=== PATIENT | female | born 1945 | race Caucasian/White ===

== ENCOUNTER → 2023-12-10 11:05 | Outpatient (REF) | payer MEDICARE, SELFPAY | LOC: WDC 11:05 | PROVIDERS: ATTENDING PHYSICIAN Family Medicine | DX: Z12.31 Encounter for screening mammogram for malignant neoplasm of breast (principal) | CPT/HCPCS: 77063; 77067 ==

== ENCOUNTER → 2024-03-12 10:06 | Outpatient (REF) | payer MEDICARE, SELFPAY | LOC: RAD 10:06 | PROVIDERS: ATTENDING PHYSICIAN Family Medicine | DX: E78.2 Mixed hyperlipidemia (principal) | CPT/HCPCS: 75571 ==

== ENCOUNTER → 2024-12-13 11:34 | Outpatient (REF) | payer MEDICARE, OTHER, SELFPAY | LOC: WDC 11:34 | PROVIDERS: ATTENDING PHYSICIAN Student in an Organized Health Care Education/Training Program | DX: Z12.31 Encounter for screening mammogram for malignant neoplasm of breast (principal) | CPT/HCPCS: 77063; 77067 ==

== ENCOUNTER 2025-07-04 11:41 | Emergency (ER) | payer MEDICARE, OTHER, SELFPAY ==
[2025-07-04 11:49] VITALS: BP 153/105
[2025-07-04 12:21] LABS: Hematocrit 42.6 % (37.0-47.0); Hemoglobin 15.6 g/dL (12.0-16.0); Mean Corp Hgb Conc. 36.6 g/dL (33.0-37.0); Mean Corpuscular Volume 88.8 fL (81.0-99.0); Nucleated Red Blood Cells % 0 %; Platelet Count 317 10^3/uL (130-400); Red Cell Dist. Width 12.1 % (11.5-14.5)
[2025-07-04 12:33] LABS: Urine Character Clear (Clear)
[2025-07-04 12:39] LABS: ALT (SGPT) 19 U/L (0-35); AST (SGOT) 25 U/L (14-36); Albumin 5.3 g/dl (3.5-5.0); Alkaline Phosphatase 60 U/L (38-126); Blood Urea Nitrogen 13 mg/dl (7-17); Calcium 9.6 mg/dl (8.4-10.2); Carbon Dioxide 29 mmol/L (22-30); Chloride 96 mmol/L (98-107); Glucose 105 mg/dl (70-99); Potassium 3.7 mmol/L (3.5-5.1); Sodium 133 mmol/L (135-145); Total Protein 8.9 g/dl (6.3-8.2); eGFR > 60.00
[2025-07-04 13:08] LABS: Urine Squamous Cell 0-2 /LPF (Few); Urine White Cell 0-2 /HPF (0-5)
[2025-07-04 13:09] LABS: Urine Red Blood Cell 0-2 /HPF (0-2)
[2025-07-04 13:54] VITALS: BP 170/93
[2025-07-04] MEDS: ZOFRAN 4 MG IV (14:11)
[2025-07-04] MEDS: TYLENOL 1000 MG PO (14:11)
--- NOTE | 2025-07-04 14:12 | ED.GENMED ---
History of Present Illness
General
Chief Complaint: Fall
Time Seen by Provider: 07/04/25 13:55
Nursing documentation reviewed up to this point in time: agreed with
History of Present Illness
History of Present Illness:
79-year-old female presents to the ER for evaluation of left hip pain after she fell off of a ladder on Friday morning. Patient states that she landed on her left side and did strike her head on the ground. She reports that she saw stars but did
not have a loss of consciousness. She states that she has been nauseated with repetitive emesis since the fall. She reports a diffuse headache which has not responded to taking aspirin. Patient has been able to ambulate but she reports worsening
pain in her left hip. She also reports feeling swollen across her entire abdomen. She is also reporting left-sided abdominal pain. She denies pain with breathing. She denies feeling short of breath. She does not take any medications every day
other than sertraline and albuterol
Past History
Past History
ED Past Medical History: Arrthythmia (Paroxysmal SVT) and Other (SVT)
ED Past Surgical History: None
Social History
Tobacco: Non-smoker
Alcohol: Occasional
Living: with family
Family History
Family History: CAD and Other (lung CA)
Phy Exam
Physical Exam
Physical Exam:
Patient is awake, alert, appears in no acute distress, head is NCAT, PERRL, negative raccoon eyes, negative Moser sign, EOMI mucous membranes moist, conjunctiva pink, heart regular rate and rhythm without murmurs or ectopy, lungs are clear to
auscultation without wheezes rales or rhonchi, no abnormal chest wall excursion, no crepitus no JVD, abdomen is soft and with mild tenderness on palpation left upper quadrant and left lower quadrant, pelvis is stable to rock but patient does have
pain on palpation of left ASIS and iliac crest on the left, extremities without edema, GCS is 15
Course
Orders/Labs/Results
Orders:
Orders
07/04/25 12:04
CT Abd/Pel (IV only)-DH only Urgent
Comment:
Reason For Exam: L flank pain after fall
CT Cervical Spine W/o Iv Contr Urgent
Comment:
Reason For Exam: fall hit head
CT Head W/o Iv Contrast Urgent
Comment:
Reason For Exam: fall hit head
07/04/25 12:11
CBC/With Diff [Complete Blood Count/With Diff] Urgent
CMP [Comprehensive Metabolic Panel] Urgent
Urinalysis Reflex To Culture Urgent
Date Specimen was Collected: 07/04/25
Time Specimen was Collected: 12:06
Urine Microscopic Reflex Cult Urgent
07/04/25 14:06
Acetaminophen [Tylenol] 1,000 mg PO NOW STA
Ondansetron Injectable [Zofran] 4 mg IV NOW STA
07/04/25 15:35
Ketorolac [Toradol] 15 mg IV NOW STA
Lidocaine [Lidocaine 4% Patch] 1 patch TOPICAL ONCE ONE
Apply Lidocaine patch(s) to:: L hip
Abnormal Lab Results
07/04/25
12:11
MCH 32.5 H pg
(27.0-31.0)
Sodium 133 L mmol/L
(135-145)
Chloride 96 L mmol/L
(98-107)
Glucose 105 H mg/dl
(70-99)
Total Bilirubin 2.2 H mg/dl
(0.2-1.3)
Total Protein 8.9 H g/dl
(6.3-8.2)
Albumin 5.3 H g/dl
(3.5-5.0)
Urine Ketones 2+ A
(Negative)
Ur Occult Blood Reflex 3+ A
(Negative)
Urine Albumin (Reflex) 2+ A
(Neg - Trace)
07/04/25 12:11
07/04/25 12:11
CBC within normal limits. Microscopic hematuria present. Electrolytes without significant dyscrasia. Kidney function preserved.
Vital Signs
Initial and Last Documented VS:
Initial Vital Signs
Temp Pulse Resp BP Pulse Ox
98.2 F 107 16 153/105 98
07/04/25 11:49 07/04/25 11:49 07/04/25 11:49 07/04/25 11:49 07/04/25 11:49
Last Documented Vital Signs
Temp Pulse Resp BP Pulse Ox
98.2 F 95 16 170/93 97
07/04/25 11:49 07/04/25 13:54 07/04/25 13:54 07/04/25 13:54 07/04/25 14:14
MDM/Problems Addressed
Differential Diagnosis Includes:
Differential diagnosis to consider but not limited to occult rib fracture, splenic injury, intracranial hemorrhage, skull fracture, occult cervical spine injury, pelvic fracture along with other etiologies considered
Chronic conditions affecting care:
Advanced age
*Radiology
Radiology exam reviewed: radiology read reviewed (CT head negative)
*Pulse Oximetry
SaO2: 97
Oxygen Mode of Delivery: Room air
Patient hypoxic: no
*Critical Care Note
Total Time (30-74mins, 75-104mins- exclusive of procedures): Not Applicable
Update Note
Update Note:
Will give Tylenol along with Zofran while awaiting CT scans. Patient agrees with plan at current
Patient feeling much better after medications administered. I discussed with her no acute worrisome findings with regards to trauma on her scans. I discussed with her nonspecific fluid seen in her endometrium along with blood in her urine. I
discussed with her need to follow-up with primary care physician for pelvic ultrasound and repeated urinalysis. I discussed with her medication use at home and encouraged her to use more traditional NSAIDs as opposed to aspirin for pain relief. I
offered patient prescription for nausea medication-she is declining and states that she was very much looking forward to going home and having grewal chops for dinner. I discussed with patient supportive treatment of hip contusion and anticipated
normal healing course. She has no questions prior to leaving the department.
ED Attending Note
-
Portions of this chart may have been created with voice recognition software.� Occasional wrong word or��sound alike� substitutions may have occurred due to the inherent limitations of voice recognition software.
Discharge Plan
Departure
Patient Disposition: Home (Routine Discharge)
Date of Disposition: 07/04/25
Time of Disposition: 15:36
Patient with high blood pressure during this ER visit?: No
Discharge Problem:
Concussion, Contusion of hip, Blood in urine, Uterine abnormality
Instructions: Concussion, Adult (DC), Contusion (DC)
Prescriptions:
No Action
sertraline 25 MG/1.25 ML concentrate
50 mg PO DAILY
Patient Comments:
pt does not take med regulary
amoxicillin 500 MG capsule
3 cap PO DAILY
metoprolol succinate 25 MG tablet extended release 24 hr
25 mg PO DAILY
fluticasone propionate [Flovent HFA] 1 PUFF HFA aerosol inhaler
2 puff inhalation R BID
docosahexaenoic acid-epa 1 CAP capsule
2 cap PO DAILY
fszugirs-sjt-RD-lycopen-lutein [Centrum Silver] 1 EACH tablet
1 ea PO DAILY
Posture D
2 cap PO DAILY
Referrals:
UNKNOWN - PT DOES,NOT KNOW [Unknown Provider]
Activity Restrictions/Additional Instructions:
Try using ibuprofen or Aleve as available [id number] to help with your discomforts. You may also use topical pain relieving patches to help with your hip discomfort.
Please follow-up with your family doctor this week for reevaluation of the blood in your urine and for the fluid that was seen in your uterus-you will need outpatient ultrasound of your pelvis for further assessment
Return to the ER for any concerns
Interventions
Interventions:
*Risk Screen - Suicide Last Done: 07/04/25 11:49
*General Assessment Last Done: 07/04/25 11:49
*Neglect/Abuse Screening Last Done: 07/04/25 11:49
*ED COVID-19 Vaccine History Last Done: 07/04/25 13:54
*ED Influenza Vaccine History Last Done: 07/04/25 13:54
[facility] Fall Risk Assessment Tool Last Done: 07/04/25 13:54
*Nursing Disposition Last Done: 07/04/25 16:24
ED-Musculoskeletal Assessment Last Done: 07/04/25 13:54
ED- Neurological Assessment Last Done: 07/04/25 13:54
ED-Skin Assessment Last Done: 07/04/25 13:54
Discharge Date and Time
Discharge Date/Time: 07/04/25 16:25
Print Language: SWEDISH
[2025-07-04] MEDS: LIDOCAINE 4% PATCH 1 PATCH TOPICAL (16:10)
[2025-07-04] MEDS: TORADOL 15 MG IV (16:10)
== END 2025-07-04 16:25 | disposition home or self-care (01) ==
LOC: EMR 11:41
PROVIDERS: Physician Assistant; EMERGENCY PHYSICIAN Emergency Medicine; FAMILY PHYSICIAN Student in an Organized Health Care Education/Training Program
DX: S06.0X0A Concussion without loss of consciousness, initial encounter (principal); S70.02XA Contusion of left hip, initial encounter; W11.XXXA Fall on and from ladder, initial encounter; R31.9 Hematuria, unspecified; R93.89 Abnormal findings on diagnostic imaging of other specified body structures
CPT/HCPCS: 99284; 96374; 96375; 70450; 72125; 74177; 80053; 81003; 81015; 85025; Q9967